=== PATIENT | female | born 1965 | race Caucasian/White ===

== ENCOUNTER 2021-09-17 05:59 | Day surgery (SDC) | payer OTHER, SELFPAY ==
[~2021-09-17] VITALS: Ht 154.9 cm; Wt 72.6 kg
[2021-09-17] MEDS ORDERED: LIDOCAINE 2% 100 MG/5 ML UJET TP ONE (07:54)
[2021-09-17] MEDS ORDERED: diphenhydrAMINE 50 MG/ML VIAL ONE (07:54)
[2021-09-17] MEDS ORDERED: fentaNYL citrate 0.05 MG/ML VIAL ONE (07:54)
[2021-09-17] MEDS ORDERED: MIDAZOLAM 5 MG/5 ML VIAL ONE (07:54)
[2021-09-17] MEDS ORDERED: fentaNYL citrate 0.05 MG/ML VIAL IVP ONE (08:20)
[2021-09-17] MEDS ORDERED: MIDAZOLAM 2 MG/2 ML VIAL IVP ONE (08:20)
== END 2021-09-17 09:20 | disposition home or self-care (01) ==
LOC: MDS 05:59 → MMU 06:01 → MDS 09:20
PROVIDERS: ATTEND Internal Medicine Gastroenterology
DX: D64.9 Anemia, unspecified (principal); K63.5 Polyp of colon; K29.70 Gastritis, unspecified, without bleeding; K29.80 Duodenitis without bleeding; K44.9 Diaphragmatic hernia without obstruction or gangrene; E11.9 Type 2 diabetes mellitus without complications; I25.10 Atherosclerotic heart disease of native coronary artery without angina pectoris; I10 Essential (primary) hypertension; Z86.010 Personal history of colon polyps; Z98.84 Bariatric surgery status; Z88.0 Allergy status to penicillin; Z79.899 Other long term (current) drug therapy; Z20.822 Contact with and (suspected) exposure to COVID-19
CPT/HCPCS: 43239; 45385; 82948; 87426; J2250; J3010; 88305; 88312; 88313; 88342; J1200

== ENCOUNTER 2021-12-10 07:17 | Day surgery (SDC) | payer OTHER, SELFPAY ==
[~2021-12-10] VITALS: Ht 152.4 cm; Wt 72.6 kg
[2021-12-10] MEDS ORDERED: diphenhydrAMINE 50 MG/ML VIAL ONE (08:14)
[2021-12-10] MEDS ORDERED: fentaNYL citrate 0.05 MG/ML VIAL ONE (08:14)
[2021-12-10] MEDS ORDERED: MIDAZOLAM 5 MG/5 ML VIAL ONE (08:15)
[2021-12-10] MEDS ORDERED: MIDAZOLAM 2 MG/2 ML VIAL IVP ONE (13:45)
[2021-12-10] MEDS ORDERED: fentaNYL citrate 0.05 MG/ML VIAL IVP ONE (13:45)
== END 2021-12-10 10:55 | disposition home or self-care (01) ==
LOC: MDS 07:17 → MMU 07:18 → MDS 10:55
PROVIDERS: ATTEND Internal Medicine Gastroenterology
DX: K25.9 Gastric ulcer, unspecified as acute or chronic, without hemorrhage or perforation (principal); D64.9 Anemia, unspecified; Z98.84 Bariatric surgery status; E11.9 Type 2 diabetes mellitus without complications; I10 Essential (primary) hypertension; Z86.010 Personal history of colon polyps; Z90.49 Acquired absence of other specified parts of digestive tract; Z98.890 Other specified postprocedural states; Z88.0 Allergy status to penicillin; Z20.822 Contact with and (suspected) exposure to COVID-19
CPT/HCPCS: 43235; 87426; J1200; J2250; J3010

== ENCOUNTER 2022-11-11 06:28 | Day surgery (SDC) | payer OTHER ==
[~2022-11-11] VITALS: Ht 152.4 cm; Wt 76.2 kg
[2022-11-11] MEDS ORDERED: diphenhydrAMINE 50 MG/ML VIAL ONE (07:25)
[2022-11-11] MEDS ORDERED: fentaNYL citrate 0.05 MG/ML VIAL ONE (07:25)
[2022-11-11] MEDS ORDERED: MIDAZOLAM 2 MG/2 ML VIAL ONE ×2 (07:26)
[2022-11-11] MEDS ORDERED: fentaNYL citrate 0.05 MG/ML VIAL IVP ONE (07:45)
[2022-11-11] MEDS ORDERED: MIDAZOLAM 2 MG/2 ML VIAL IVP ONE (07:45)
== END 2022-11-11 08:32 | disposition home or self-care (01) ==
LOC: MDS 06:28 → MMU 06:29 → MDS 08:32
PROVIDERS: ATTEND Internal Medicine Gastroenterology
DX: D50.9 Iron deficiency anemia, unspecified (principal); K92.1 Melena; I10 Essential (primary) hypertension; E11.9 Type 2 diabetes mellitus without complications; I25.10 Atherosclerotic heart disease of native coronary artery without angina pectoris; K21.9 Gastro-esophageal reflux disease without esophagitis; Z90.49 Acquired absence of other specified parts of digestive tract; Z98.84 Bariatric surgery status; Z88.0 Allergy status to penicillin; Z79.899 Other long term (current) drug therapy; Z20.822 Contact with and (suspected) exposure to COVID-19
CPT/HCPCS: 43239; 82948; 87426; 88305; 88312; 88313; 88342; J2250; J3010; J1200